=== PATIENT | male | born 1965 | race Hispanic/Latino ===

== ENCOUNTER 2017-08-15 14:53 | Emergency (ER) | payer SELFPAY ==
[2017-08-15 15:16] VITALS: TEMP 98; O2SAT 98
[2017-08-15] MEDS ORDERED: HYDROmorphone 0.5 mg/0.5 ml ISec IVP STA ×3 (15:30→19:08)
[2017-08-15] MEDS ORDERED: Sodium Chloride 0.9% 1,000 ML IV SCH (15:30)
--- NOTE | 2017-08-15 15:39 | ED PDOC ---
Arrival/HPI - General Chief Complaint: Back Pain Time Seen by Provider: 08/15/17 15:06 Historian: Patient - History of Present Illness Narrative History of Present Illness (Text): 08/15/17 15:10 pt p/w + 2 days onset of severe lower back pain, with pain radiating down his buttocks and mostly affecting left lower leg; pt is unable to get out of bed without some assistance, pt states movement/changing positions/weight bearing is nearly impossible because of severe pain; pt states pain is 10/10; pt tried OTC alleve/advil without any relief; pt states his spouse had to help him move/ walk to the bathroom; pt states this lower back pain started when he was at work and moving furniture and suddenly felt this severe pain; pt states no urinary/bowel incontinence, no urinary/bowel changes, no rectal/penile numbness/ tingling, mild left leg numbness > right leg; pt states no fever/chills/sweats, no cp/sob/palpitations, no abd pain, no gross bleeding, no fall/trauma/sick contact, no travel; pt is here for further eval pt's without other complaints pt drank a few beers this morning trying to dull his pain pt with prior hx of left lower back pain with pain radiating down his lateral leg all the way down to his left foot with numbness/tingling (did not seek medical attention/pt thought he might have sciatica) PCP: Dr Costa? at clinic, otherwise none pt is left hand dominate pt lives at home with spouse Time/Duration: < week (2 days) Symptom Onset: Sudden Symptom Course: Worsening Quality: Pressure, Tightness, Stabbing, Cramping Severity Level: 10, Severe Activities at Onset: Other (at work/with movement/lifting) Context: Work Past Medical History - Provider Review Nursing Documentation Reviewed: Yes - Travel History Have you recently traveled outside [place] w/in the past 3 mons?: No - Past History Past History: No Previous - Infectious Disease Hx of Infectious Diseases: None - Tetanus Immunization Tetanus Immunization: Unknown - Cardiac Hx Hypertension: Yes - Pulmonary Hx Chronic Obstructive Pulmonary Disease (COPD): Yes - Psychiatric Hx Substance Use: No - Anesthesia Hx Anesthesia: No Hx Anesthesia Reactions: No Hx Malignant Hyperthermia: No Family/Social History - Physician Review Nursing Documentation Reviewed: Yes Family/Social History: No Known Family HX Smoking Status: Current Some Days Smoker Hx Alcohol Use: Yes Frequency of alcohol use: Socially Hx Substance Use: No Hx Substance Use Treatment: No Allergies/Home Meds Allergies/Adverse Reactions: Allergies No Known Allergies Allergy (Verified 08/15/17 15:14) Home Medications: Home Meds Medication Instructions Recorded Confirmed Albuterol/Ipratropium [Duoneb 3 3 ml IH BID PRN 08/15/17 08/15/17 MG/3 Ml-0.5 MG/3 Ml 3 Ml] Benzonatate [Tessalon Perles] 1 cap PO DAILY 08/15/17 08/15/17 Review of Systems - Review of Systems Constitutional: Normal Eyes: Normal ENT: Normal Respiratory: Normal Cardiovascular: Normal Gastrointestinal: Normal Genitourinary Male: Normal Musculoskeletal: Back Pain Skin: Normal Neurological: Normal Endocrine: Normal Hemo/Lymphatic: Normal Psychiatric: Normal Physical Exam Vital Signs Reviewed: Yes Vital Signs Temp Pulse Resp BP Pulse Ox 08/15/17 18:00 89 18 156/80 H 98 08/15/17 16:53 87 18 156/80 H 98 08/15/17 14:53 98 F 84 19 153/93 H 98 Temperature: Afebrile Blood Pressure: Hypertensive Pulse: Regular Respiratory Rate: Normal Appearance: Positive for: Well-Appearing, Uncomfortable, Other (uncomfortable, resting in bed, alert/awake, GCS = 15, oriented x 3, severe distress during exam of pt's back/lower legs; cooperative; + mild etoh on breath). No: Non- Toxic Pain Distress: Severe Mental Status: Positive for: Alert and Oriented X 3 - Systems Exam Head: Present: Atraumatic, Normocephalic Pupils: Present: PERRL, Other (no nystagmus, no photophobia, sclera anicteric, visual field intact b/l, wearing eyeglasses) Extroacular Muscles: Present: EOMI Conjunctiva: Present: Normal Ears: Present: Normal Mouth: Present: Moist Mucous Membranes, Normal Teeth, Other (uvula/tongue are midline, intact dentitions, no drooling/stridor) Pharnyx: Present: Normal Nose (External): Present: Atraumatic Nose (Internal): Present: Normal Inspection Neck: Present: Normal Range of Motion, Trachea Midline, Other (intact ROM, no midline tenderness, no nuchal rigidity, no meningeal signs). No: Meningeal Signs, MIDLINE TENDERNESS, Paraspinal Tenderness Respiratory/Chest: Present: Clear to Auscultation, Good Air Exchange, Other ( CTA b/l, no w/r/r; no accessory muscle use noted, no tachypenia). No: Respiratory Distress, Accessory Muscle Use, Wheezes Cardiovascular: Present: Regular Rate and Rhythm, Normal S1, S2. No: Murmurs Abdomen: Present: Normal Bowel Sounds, Other (well nourished male, no focal tenderness, no masses/rebound/guarding/rigidity, no amaya's sign, no mcburney' s point tenderness). No: Tenderness, Distention Back: Present: Normal Inspection, Paraspinal Tenderness, Pain with Leg Raise (+ left lower leg pain at 10-15degrees; + right lower leg pain at 45-50degrees), Other (+ diffuse lower paralumbar tenderness, no creptius, no gross swelling noted). No: CVA Tenderness Upper Extremity: Present: Normal Inspection, Normal ROM, NORMAL PULSES, Neurovascularly Intact, Capillary Refill < 2s. No: Deformity Lower Extremity: Present: Normal Inspection, NORMAL PULSES, Neurovascularly Intact, Other (intact ROM, + left leg raising pain > right leg) Neurological: Present: GCS=15, CN II-XII Intact, Speech Normal Skin: Present: Warm, Normal Color, Other (cap refill < 1sec, no ulcerations, no petechiae, no rashes/lesions/pallor). No: Rashes Psychiatric: Present: Alert, Oriented x 3 Medical Decision Making ED Course and Treatment: 08/15/17 1530 Impression: lower back pain, unable to walk, left leg pain i have consider all the differential diagnosis regarding pt's chief medical complaints/clinical findings, including but are not limited to: lower back pain , unable to walk, left leg pain, likely herniated disc A/P: lower back pain, left leg pain, unable to ambulate - labs - iv - ct - ua - pain control - supportive care - observe/reevaluation 1630 after medications, pt's pain is improving, was at 5/10, but the pain is gradually worsening to 7/10 pt is currently awaiting CT results 08/15/17 18:34 pt is doing well pt is now stretching in his exam bed, appearing more comfortable; pt is listening to music on his ipod pt states back pain is currently rated at 6/10 pain level 08/15/17 19:05 pt is able to move around his exam bed with ease currently pt is able to stand and bear weight, favoring left leg however, pt is able to ambulate with no assistance pt states his pain remains ~ 6/10 pt is given option for possible admission vs discharge, pt states he would rather be at home and try it out to get better and return to ED if worse symptoms/cant walk pt is made aware of his medical results pt is encouraged no prolonged standing/walking, no heavy lifting pt will f/u as directed pt will be discharged home Re-evaluation Time: 16:35 Reassessment Condition: Improving,but remains with symptoms - Lab Interpretations Lab Results: 08/15/17 15:55 08/15/17 15:55 Lab Results 08/15/17 15:55: Sodium 144, Potassium 3.3 L, Chloride 108 H, Carbon Dioxide 17 L , Anion Gap 22 H, BUN 16, Creatinine 0.8, Est GFR ( Amer) > 60, Est GFR ( Non-Af Amer) > 60, Random Glucose 96, Calcium 9.2, Total Bilirubin 0.4, AST 36, ALT 36, Alkaline Phosphatase 82, Total Creatine Kinase 268 H, CK-MB (CK-2) 1.5, CK-MB (CK-2) % Cancelled, Total Protein 6.8, Albumin 4.2, Globulin 2.6, Albumin/ Globulin Ratio 1.6 08/15/17 15:55: WBC 8.7, RBC 4.91, Hgb 16.3, Hct 46.0, MCV 93.7, MCH 33.2, MCHC 35.4, RDW 14.3, Plt Count 210, MPV 10.9, Gran % 68.3 H, Lymph % (Auto) 23.6, Sampson % (Auto) 5.9, Eos % (Auto) 2.0, Baso % (Auto) 0.2, Gran # 5.92, Lymph # ( Auto) 2.0, Sampson # (Auto) 0.5, Eos # (Auto) 0.2, Baso # (Auto) 0.02 I have reviewed the lab results: Yes Interpretation: Abnormal lab values (slight decr K) - RAD Interpretation Narrative RAD Interpretations (Text): 08/15/17 18:46 CT Lumbar Spine reviewed, shows: Vertebrae: No acute fracture. Slight retrolisthesis L2 on L3, likely chronic. Mild degenerative changes with endplate spurring. Discs/spinal canal/neural foramina: L4-L5 central disc protrusion compressing the ventral thecal sac with mild spinal stenosis. Soft tissues: Unremarkable. Stomach and bowel: Mild colonic diverticulosis without acute diverticulitis. IMPRESSION: L4-L5 disc protrusion. No acute traumatic osseous injury. Radiology Orders: 08/15/17 15:30 LUMBAR SPINE W/O CONTRAST [CT] Stat Maintenance Planning Clerk: Radiologist - Medication Orders Current Medication Orders: Discontinued Medications Diazepam (Valium) 5 mg PO ONCE ONE PRN Reason: Protocol Stop: 08/15/17 15:30 Last Admin: 08/15/17 15:42 Dose: 5 mg Diazepam (Valium) 5 mg PO ONCE ONE PRN Reason: Protocol Stop: 08/15/17 19:09 Last Admin: 08/15/17 19:26 Dose: Diazepam (Valium) 5 mg PO ONCE ONE PRN Reason: Protocol Stop: 08/15/17 19:31 Last Admin: 08/15/17 19:21 Dose: 5 mg Hydromorphone HCl (Dilaudid) 1 mg IVP STAT STA Stop: 08/15/17 15:31 Last Admin: 08/15/17 15:41 Dose: 1 mg MAR Pain Assessment Document 08/15/17 15:41 EWO (Rec: 08/15/17 15:42 [facility] [id number]) Pain Reassessment Is this a pain reassessment? No Sleep Is patient sleeping during reassessment? Yes Pain Scale Used Pain Scale Used Numeric Location Pain Location Body Site Back Description Intensity of Pain at present 8 IVP Administration Document 08/15/17 15:41 EWO (Rec: 08/15/17 15:42 [facility] [id number]) Charges for Administration # of IVP Administrations 1 Hydromorphone HCl (Dilaudid) 1 mg IVP STAT STA Stop: 08/15/17 17:05 Last Admin: 08/15/17 17:30 Dose: 1 mg MAR Pain Assessment Document 08/15/17 17:30 EWO (Rec: 08/15/17 17:31 EWO [id number]) Pain Reassessment Is this a pain reassessment? Yes Sleep Is patient sleeping during reassessment? No Presence of Pain Presence of Pain Yes Pain Scale Used Pain Scale Used Numeric Description Description Constant IVP Administration Document 08/15/17 17:30 EWO (Rec: 08/15/17 17:31 EWO [id number]) Charges for Administration # of IVP Administrations 2 Re-Assess: MAR Pain Assessment Document 08/15/17 19:00 RG (Rec: 08/15/17 19:19 RG [id number]) Pain Reassessment Is this a pain reassessment? Yes Presence of Pain Presence of Pain Yes Pain Scale Used Pain Scale Used Numeric Location Upper or Lower Lower Pain Location Body Site Lumbar Description Description Constant Pain Behavior Irritability Hydromorphone HCl (Dilaudid) 1 mg IVP STAT STA Stop: 08/15/17 19:09 Last Admin: 08/15/17 19:24 Dose: 1 mg MAR Pain Assessment Document 08/15/17 19:24 RG (Rec: 08/15/17 19:25 RG [id number]) Pain Reassessment Is this a pain reassessment? Yes Sleep Is patient sleeping during reassessment? No Presence of Pain Presence of Pain Yes Pain Scale Used Pain Scale Used Numeric Location Upper or Lower Lower Pain Location Body Site Back Description Description Constant Pain Behavior Irritability IVP Administration Document 08/15/17 19:24 RG (Rec: 08/15/17 19:25 RG [id number]) Charges for Administration # of IVP Administrations 1 Sodium Chloride (Sodium Chloride 0.9%) 1,000 mls @ 100 mls/hr IV .Q10H KARLOS Last Admin: 08/15/17 15:42 Dose: 100 mls/hr eMAR Start Stop Document 08/15/17 15:42 EWO (Rec: 08/15/17 15:42 EWO [id number]) Intravenous Solution Start Date 08/15/17 Start Time 15:42 Ketorolac Tromethamine (Toradol) 30 mg IVP STAT STA Stop: 08/15/17 15:30 Last Admin: 08/15/17 15:42 Dose: 30 mg MAR Pain Assessment Document 08/15/17 15:42 EWO (Rec: 08/15/17 15:42 EWO [id number]) Pain Reassessment Is this a pain reassessment? No IVP Administration Document 08/15/17 15:42 EWSarika (Rec: 08/15/17 15:42 EWO [id number]) Charges for Administration # of IVP Administrations 1 Potassium Chloride (K-Dur 20 Meq Er Tab) 40 meq PO STAT STA Stop: 08/15/17 17:43 Last Admin: 08/15/17 18:07 Dose: 40 meq - Scribe Statement The provider has reviewed the documentation as recorded by the Elginibdave May All medical record entries made by the Elginibdave were at my direction and personally dictated by me. I have reviewed the chart and agree that the record accurately reflects my personal performance of the history, physical exam, medical decision making, and the department course for this patient. I have also personally directed, reviewed, and agree with the discharge instructions and disposition. Disposition/Present on Arrival - Present on Arrival Any Indicators Present on Arrival: No History of DVT/PE: No History of Uncontrolled Diabetes: No Urinary Catheter: No History of Decub. Ulcer: No History Surgical Site Infection Following: None - Disposition Have Diagnosis and Disposition been Completed?: Yes Diagnosis: Intractable low back pain, Herniated vertebral disc Diagnosis: (Ruled Out): Ambulatory dysfunction Disposition: HOME/ ROUTINE Disposition Time: 19:09 Patient Plan: Discharge Condition: STABLE Discharge Instructions (ExitCare): Low Back Pain in Adults, Herniated Disc (DC) Print Language: NAMIBIAN Additional Instructions: Make sure to see your doctor in 1-2 days DRINK PLENTY OF FLUIDS take your medications as prescribed AVOID heavy weight lifting avoid prolonged standing RETURN TO ED IF worse pain, cant breath, persistent vomiting, high fever >101- 102 for hours, altered behavior, slurr speech, facial changes, focal weakness ( arm/leg or both), unable to urinate, severe numbness/tingling, rectal/penile numbness/tingling, incontinence, heavy/persistent bleeding, passing out, chest pain, or other medical emergencies Prescriptions: diaZEpam [Valium] 5 mg PO TID PRN #12 tab PRN Reason: Muscle Spasm Ibuprofen [Motrin] 600 mg PO QID PRN #30 tab PRN Reason: Pain, Mild (1-3) oxyCODONE/Acetaminophen [Percocet 5/325 mg Tab] 1 tab PO TID PRN #12 tab PRN Reason: Pain, Moderate (4-7) Referrals: Anh Costa MD [Primary Care Provider] - Follow up with primary Luis Antonio Chan DO [Staff Provider] - Follow up with primary Yonis Newman MD [Staff Provider] - Follow up with primary Forms: [employer] (Danish), WORK NOTE
[2017-08-15 16:07] LABS: BASO # 0.02 K/mm3 (0.0-2.0); BASO % 0.2 % (0.0-3.0); EOS # 0.2 (0.0-0.7); GRAN # 5.92 (1.4-6.5); GRAN % 68.3 % (50.0-68.0); HEMOGLOBIN 16.3 g/dL (14.0-18.0); LYMPH % 23.6 % (22.0-35.0); MEAN CELL VOLUME 93.7 fl (80.0-105.0); MEAN CORPUSCULAR HEMOGLOBIN 33.2 pg (25.0-35.0); MEAN CORPUSCULAR HGB CONC 35.4 g/dl (31.0-37.0); MEAN PLATELET VOLUME 10.9 fl (7.0-11.0); MONO # 0.5 (0.1-0.6); MONO % 5.9 % (1.0-6.0); RBC 4.91 10^6/uL (3.5-6.1); RED CELL DISTRIBUTION WIDTH 14.3 % (11.5-14.5); WHITE BLOOD COUNT 8.7 10^3/ul (4.5-11.0)
[2017-08-15 16:15] LABS: ALB/GLOB RATIO 1.6 (1.1-1.8); ALBUMIN 4.2 g/dL (3.0-4.8); ALT/SGPT 36 U/L (7-56); AST/SGOT 36 U/L (17-59); BLOOD UREA NITROGEN 16 mg/dL (7-21); CALCIUM 9.2 mg/dL (8.4-10.5); GFR AFRICAN-AMERICAN > 60; GFR NON-AFRICAN AMERICAN > 60
[2017-08-15 16:34] LABS: CK-MB 1.5 ng/mL (0.0-3.6)
[2017-08-15] MEDS ORDERED: Potassium Chloride 20 mEq ER Tab PO STA (17:42)
[2017-08-15 18:55] VITALS: BP 156/80; RESP 18
[2017-08-15 18:56] VITALS: PULSE 89
--- NOTE | 2017-08-16 10:44 | CT ---
PROCEDURE: CT Lumbar Spine without contrast HISTORY: no trauma, severe lower back pain, unable to walk COMPARISON: No prior studies TECHNIQUE: Axial computed tomography images were obtained of the lumbar spine without the use of intravenous contrast. Coronal and sagittal reformatted images were created and reviewed. Radiation dose: Total exam DLP = 1468 mGy-cm. This CT exam was performed using one or more of the following dose reduction techniques: Automated exposure control, adjustment of the mA and/or kV according to patient size, and/or use of iterative reconstruction technique. FINDINGS: VERTEBRAE: No acute compression fracture is seen. No lytic process is noted. Visualized sacrum and sacroiliac joints are intact although some possible mild degenerative changes of the sacroiliac joints are noted. Scattered Schmorl's nodes are identified throughout the lumbar spine region. There is very minimal retrolisthesis of L2 over L3. DISCS/SPINAL CANAL/NEURAL FORAMINA: L1-2: Minor disc bulging is seen at this level with minor flattening upon the thecal sac. No significant neural foraminal narrowing is seen. L2-3: Mild disc bulging and endplate change are identified with mild flattening upon the thecal sac. Minor neural foraminal narrowing is noted without obstruction of the nerve roots. L3-4: Very mild disc bulging is seen at L3-4 with mild flattening upon the thecal sac. Mild acquired central stenosis is seen at this level secondary to mild ligamentum hypertrophy and facet change. Very mild neural foraminal narrowing is seen. L4-5: There is a mild to moderate-sized broad-based central disc protrusion at L4-5. This is causing flattening upon the thecal sac as well as additional mild to moderate acquired stenosis. Mild ligament flavum hypertrophy is seen. Mild neural foraminal narrowing is noted without obstruction of the nerve root. L5-S1: No significant disc herniation. Very mild disc bulging. PARASPINAL SOFT TISSUES: No paraspinal masses are seen. OTHER FINDINGS: No retroperitoneal adenopathy is seen in the retroperitoneal region. No appreciable pelvic adenopathy is seen. No hydronephrosis is noted. Visualized lung bases show no evidence of infiltrate or effusion. Very small hiatal hernia is incidentally seen. Visualized liver, spleen, and pancreas are otherwise unremarkable. Minor atherosclerotic changes of the aorta are noted. Visualized bladder is normal in outline but suboptimally identified. Visualized bowel is within normal limits. IMPRESSION: No evidence of compression fracture or acute malalignment. Broad-based central disc protrusion at L4-5 causing mild to moderate ventral impression upon the thecal sac. This agrees with the preliminary report provided by the on-call radiologist.
== END 2017-08-15 19:39 | disposition home or self-care (01) ==
LOC: ED 14:53
DX: M54.5 Low back pain (principal); M51.26 Other intervertebral disc displacement, lumbar region
CPT/HCPCS: 72131; 80053; 82550; 82553; 85025; 96374; 96375; 96376; 99284; J1170; J1885; J7040